=== PATIENT | male | born 1985 | race Hispanic/Latino ===

== ENCOUNTER → 2017-09-15 14:31 | Outpatient (CLI) | payer OTHER, SELFPAY ==
--- NOTE | 2017-09-15 | DI.RAD.S_ITS ---
PROCEDURE: XR ANKLE LT MIN 3V INDICATIONS: FALL AT WORK,.TWISTED LEFT ANKLE TECHNIQUE: 3 views of the ankle were acquired. COMPARISON: None. FINDINGS: Bones: No fractures or dislocations. Ankle mortise is normally aligned. No suspicious bony lesions. Soft tissues: No tibiotalar joint effusion. Achilles tendon appears normal. IMPRESSION: Negative for fracture. Impaction injury can cause bone bruise which is only imaged by MRI. Dictated by: Flaco Holland M.D. on 09/15/2017 at 15:06 Approved by: Flaco Holland M.D. on 09/15/2017 at 15:07
== END ==
PROVIDERS: Visit Provider Family Medicine
DX: S99.912A Unspecified injury of left ankle, initial encounter (principal)
CPT/HCPCS: 73610